=== PATIENT | female | born 1950 | race Caucasian/White ===

== ENCOUNTER → 2021-02-23 08:41 | Outpatient (CLI) | payer MEDICARE | END | disposition home or self-care (01) | LOC: D.RAD 08:41 | PROVIDERS: ATTEND Nurse Practitioner | DX: K66.0 Peritoneal adhesions (postprocedural) (postinfection) (principal) ==

== ENCOUNTER → 2021-03-01 09:50 | Outpatient (CLI) | payer MEDICARE | END | disposition home or self-care (01) | LOC: D.CT 08:45 | PROVIDERS: ATTEND Nurse Practitioner | DX: K66.0 Peritoneal adhesions (postprocedural) (postinfection) (principal) ==

== ENCOUNTER 2021-03-08 05:11 | Observation (INO) | payer MEDICARE ==
[~2021-03-08] VITALS: Ht 149.9 cm; Wt 58.6 kg
[2021-03-08] MEDS ORDERED: TENORMIN50 MG PO (05:25)
[2021-03-08] MEDS ORDERED: TRIAMTERENE-HC1 EAC3 PO (05:26)
[2021-03-08] MEDS ORDERED: CIPRO500 MG PO (05:27)
[2021-03-08] MEDS ORDERED: FLAGYL500 MG PO (05:27)
[2021-03-08 06:37] LABS: ANION GAP 13.3 mmol/L (8-16); BASOPHILS 0.4 % (0-2); CALCIUM 9.1 mg/dL (8.5-10.1); CARBON DIOXIDE 24.2 mmol/L (21.0-32.0); CREATININE - SERUM 1.1 mg/dL (0.6-1.3); EOSINOPHILS 1.6 % (0-7); HEMATOCRIT 40.5 % (36.0-48.0); HEMOGLOBIN 14.4 g/dL (12-16); IMMATURE GRANULOCYTES 0.1 % (0-5); LYMPHOCYTE ABS# 2.06 10x3/uL (1.18-3.74); LYMPHOCYTES 26.8 % (15-50); MCH 32.4 pg (26.0-34.0); MCHC 35.6 g/dL (31.0-37.0); MCV 91.2 fL (80.0-100.0); MEAN PLATELET VOLUME 10.5 fL (7.4-10.4); MONOCYTES 10.4 % (2-11); NEUTROPHIL ABS# 4.66 10x3/uL (1.56-6.13); NEUTROPHILS 60.7 % (40-80); PLATELET COUNT 197 10x3/uL (130-400); POTASSIUM - SERUM 3.5 mmol/L (3.5-5.1); RBC 4.44 10x6/uL (4.00-5.40); WBC 7.7 10x3/uL (4.8-10.8)
[2021-03-08 06:42] LABS: ALBUMIN 3.6 g/dL (3.4-5.0); BILIRUBIN - TOTAL 0.4 mg/dL (0.2-1.3); PROTEIN - SERUM 7.2 g/dL (6.4-8.2)
[2021-03-08 06:55] LABS: INR 1.09 (0.85-1.17)
[2021-03-08] MEDS ORDERED: AUGMENTIN 875-11 TAB PO (07:03)
[2021-03-08] MEDS ORDERED: FLUTICASONE PRO16 GM NASAL (07:03)
[2021-03-08 09:02] LABS: CKMB 0.4 U/L (0.0-3.6); CREATINE KINASE 30 UL (21-215)
[2021-03-08 09:03] LABS: TROPONIN-I < 0.017 ng/mL (0.000-0.060)
--- NOTE | 2021-03-08 10:20 | NUR ---
Arrived from ER in stable condition via w/c accompanied by hospital staff and family member, oriented to unit, oriented to room, oriented to bed controls, obtained VS, Ht, and Wt., no s/s of acute distress observed.
[2021-03-08 10:50] VITALS: BP 168/56; Ht 149.9 cm; Wt 58.6 kg
[2021-03-08 12:21] LABS: CHOL - HDL RATIO 4.5 ratio (2.3-4.1)
[2021-03-08 15:11] VITALS: BP 160/58
[2021-03-08 15:52] LABS: CKMB 0.4 U/L (0.0-3.6); CREATINE KINASE 33 UL (21-215)
[2021-03-08 15:53] LABS: TROPONIN-I < 0.017 ng/mL (0.000-0.060)
[2021-03-08 21:11] LABS: CKMB 0.3 U/L (0.0-3.6); CREATINE KINASE 32 UL (21-215)
[2021-03-08 21:15] LABS: TROPONIN-I < 0.017 ng/mL (0.000-0.060)
[2021-03-08 22:48] VITALS: BP 142/58
[2021-03-08 23:31] VITALS: BP 139/48
[2021-03-09 04:00] VITALS: BP 143/61
[2021-03-09 06:24] LABS: BASOPHILS 0.5 % (0-2); EOSINOPHILS 2.3 % (0-7); HEMATOCRIT 38.2 % (36.0-48.0); HEMOGLOBIN 13.3 g/dL (12-16); IMMATURE GRANULOCYTES 0.2 % (0-5); LYMPHOCYTE ABS# 2.21 10x3/uL (1.18-3.74); LYMPHOCYTES 33.4 % (15-50); MCH 32.3 pg (26.0-34.0); MCHC 34.8 g/dL (31.0-37.0); MCV 92.7 fL (80.0-100.0); MEAN PLATELET VOLUME 10.4 fL (7.4-10.4); MONOCYTES 11.6 % (2-11); NEUTROPHIL ABS# 3.45 10x3/uL (1.56-6.13); PLATELET COUNT 185 10x3/uL (130-400); RBC 4.12 10x6/uL (4.00-5.40); RDW 13.1 % (11.5-14.5); WBC 6.6 10x3/uL (4.8-10.8)
[2021-03-09 06:40] LABS: ALBUMIN 3.1 g/dL (3.4-5.0); ANION GAP 14.7 mmol/L (8-16); BILIRUBIN - TOTAL 0.51 mg/dL (0.2-1.3); CALCIUM 8.2 mg/dL (8.5-10.1); MAGNESIUM - SERUM 1.6 mg/dL (1.8-2.4); POTASSIUM - SERUM 3.7 mmol/L (3.5-5.1); PROTEIN - SERUM 6.1 g/dL (6.4-8.2)
--- NOTE | 2021-03-09 07:20 | NUR ---
Lying in bed, awake/alert/oriented, T/R self ad ling, cont of B/B with BRPs/BSC per self ad ling, denies pain but states "all over aching" rated 4/10, advised movement followed by relaxation to manage, call light/phone/water within reach, no s/s of acute distress observed.
[2021-03-09] MEDS ORDERED: LOW DOSE ASPIRI81 M1 PO (10:20)
[2021-03-09] MEDS ORDERED: LIPITOR20 MG PO (10:20)
[2021-03-09] MEDS ORDERED: ULTRAM50 MG PO (10:21)
[2021-03-09] MEDS ORDERED: FLORAJEN3 CAPS460 MG PO (10:21)
[2021-03-09] MEDS ORDERED: MECLIZINE HCL25 MG PO (10:21)
--- NOTE | 2021-03-09 11:36 | NUR ---
Provided written/verbal DC instructions/education to pt who verbalized understanding, discontinued, DC'd IV access/cardiac telemetry monitoring, waiting for ride.
--- NOTE | 2021-03-09 12:25 | NUR ---
Discharged home in stable condition via w/c accompanied by hospital staff and family member, no s/s of acute distress observed.
--- NOTE | 2021-03-09 13:33 | NUR ---
OT NOTE: UPON ENTERING PT ROOM, SHE WAS DRESSED WITH BAGS PACKED AND STATED THAT SHE WAS ABOUT TO GO HOME. DTR AT BEDSIDE. REPORTS FEELING MUCH BETTER ISRRAEL ADAMS OTR/L
== END 2021-03-09 12:25 | disposition home or self-care (01) ==
LOC: D.ER 05:11 → D.M2 08:27 → OBSVTIME 08:27 → D.M2 08:27
PROVIDERS: Family Medicine; ADMIT Emergency Medicine; ATTEND Emergency Medicine
DX: R55 Syncope and collapse (principal); K57.92 Diverticulitis of intestine, part unspecified, without perforation or abscess without bleeding; H53.8 Other visual disturbances; I10 Essential (primary) hypertension; J01.90 Acute sinusitis, unspecified